=== PATIENT | male | born 1980 | race Caucasian/White ===

== ENCOUNTER 2017-03-27 15:33 | Outpatient (CLI) | payer BC ==
[2017-03-27 16:36] LABS: #Basophils 0.1 thou/uL (0.0-0.2); #Eosinphils 0.2 thou/uL (0.0-0.7); #Lymphocytes 2.5 thou/uL (1.20-3.40); #Monocytes 0.9 thou/uL (0.11-0.59); #Neutrophils 4.2 thou/uL (1.40-6.50); %Eosinophils 2.6 % (0.0-10.0); %Lymphocytes 31.6 % (21.0-51.0); %Monocytes 11.4 % (0.0-10.0); Hematocrit 44.7 % (42.0-52.0); Mean Platelet Volume 7.2 fL (7.4-10.4); Red Blood Cell (RBC) Count 4.76 mill/uL (4.70-6.10); White Blood Cell (WBC) Count 7.8 thou/uL (4.8-10.8)
[2017-03-27 16:52] LABS: ALT (SGPT) 41 U/L (8-55); AST (SGOT) 31 U/L (5-34); Alkaline Phosphatase 94 U/L (40-150); Anion Gap 11 mmol/L (10-20); BUN (Urea Nitrogen) 21 mg/dL (8.9-20.6); Bilirubin, Total 0.6 mg/dL (0.2-1.2); Calc. Creatinine Clearance 0 mL/min (70-130); Calcium 9.9 mg/dL (7.8-10.44); Carbon Dioxide 25 mmol/L (22-29); Chloride 104 mmol/L (98-107); Estimated GFR-MDRD 79; Globulin 3.1 g/dL (2.4-3.5); Protein, Total 7.5 g/dL (6.0-8.3)
== END 2017-03-27 15:34 | disposition home or self-care (01) ==
LOC: LABBT 15:33
PROVIDERS: ATTEND Surgery
DX: Z01.818 Encounter for other preprocedural examination (principal)
CPT/HCPCS: 80053; 85025

== ENCOUNTER 2017-03-29 07:56 | Day surgery (SDC) | payer BC ==
[2017-03-27 15:35] VITALS: BMI 38.7
[2017-03-29] MEDS ORDERED: Bupivacaine/Epinephrine 0.25% 30 ML VIAL ONE (09:00)
[2017-03-29] MEDS ORDERED: CEFAZOLIN/Water 2 GM/20 ML SYRINGE ONE (09:03)
[2017-03-29] MEDS ORDERED: Midazolam HCl 2 mg/2 ml Vial ONE (09:06)
[2017-03-29] MEDS ORDERED: Fentanyl 100 MCG/2 ML VIAL ONE ×2 (09:06→10:48)
--- NOTE | 2017-03-29 11:13 | OP ---
DATE OF SERVICE: 03/29/2017 PREOPERATIVE DIAGNOSIS: Epigastric hernia. SURGEON: Sp Almonte M.D. PROCEDURE: Epigastric hernia repair with mesh. INDICATIONS: A 37-year-old male who has a painful bulge just above the umbilicus. FINDINGS: A 1.2 cm defect, 6.4 cm piece of mesh used. PROCEDURE IN DETAIL: After informed consent was obtained, the patient was taken to the operating lilly m and given general mask anesthesia, placed in the supine position. The abdomen was prepped and drap ed in the usual fashion. Local anesthesia infiltrated subcutaneously and deep. An upper midline inci ben performed. The subcu divided sharply. The hernia was dissected circumferentially. The hernia sac removed. I had to open the fascia just slightly in order to reduce the hernia. Once reduced, a 6.4 cm piece of mesh was used. Proceed mesh was hydrated, inserted intra-abdominally, sutured to the abdominal wall with interrupted 0 Ethibond. Hemostasis achieved. Subcutaneous reapproximated with interrupted 3-0 Vicryl. Skin closed with a running subcuticular 4-0 Rapide. Dermabond applied. The patient tolerated the procedure well and transferred to recovery in good condition. Sponge and need le count verified correct x2.
[2017-03-29] MEDS ORDERED: Lidocaine 1% PF 5 ML VIAL ONE (16:18)
[2017-03-29] MEDS ORDERED: Propofol 200 MG/20 ML VIAL ONE (16:18)
[2017-03-29] MEDS ORDERED: Ketorolac Tromethamine 30 MG/ML VIAL ONE (16:18)
[2017-03-29] MEDS ORDERED: Glycopyrrolate 0.2 MG/ML 5 ML SYRINGE ONE (16:18)
== END 2017-03-29 12:45 | disposition home or self-care (01) ==
LOC: SDC 07:56
PROVIDERS: ATTEND Surgery
PROC: 0WUF0JZ Supplement Abdominal Wall with Synthetic Substitute, Open Approach (ICD-10-PCS; principal; 2017-03-29)
DX: K43.9 Ventral hernia without obstruction or gangrene (principal); Z90.49 Acquired absence of other specified parts of digestive tract; Z98.890 Other specified postprocedural states
CPT/HCPCS: 96374; C1781; J1885; J2001; J2250; J2704; J3010

== ENCOUNTER → 2017-04-12 | Day surgery (SDC) | payer BC ==
[~2017-04-12] MED LIST: Acetaminophen 500 MG TAB ONE; Albuterol Sulfate 1.25 MG/3 ML NEB ONE; Bupivacaine/Epinephrine 0.25% 30 ML VIAL ONE; Fentanyl 100 MCG/2 ML VIAL ONE; Fentanyl 250 MCG/5 ML VIAL ONE; HYDROcodone/Acetaminophen 7.5/325 mg Tablet ONE; HYDROmorphone 2 MG/ML VIAL SLOW IVP PRN; Ketorolac Tromethamine 30 MG/ML VIAL ONE; Meperidine HCl/PF 25 MG/ML VIAL SLOW IVP PRN; Midazolam HCl 2 mg/2 ml Vial ONE; Morphine Sulfate 2 MG/ML SYRINGE SLOW IVP PRN; Piperacillin/Tazobactam 3.375 GM in Sodium Chloride 0.9% 100 ML IVPB SCH; Promethazine HCl 25 MG/ML VIAL SLOW IVP PRN; Sodium Chloride For Inhalation 0.9% 3 ML NEB ONE; metroNIDAZOLE 500 MG in Premix Bag 1 BAG IVPB SCH
[2017-04-12 10:25] LABS: #Basophils 0.1 thou/uL (0.0-0.2); #Eosinphils 0.1 thou/uL (0.0-0.7); #Lymphocytes 1.5 thou/uL (1.20-3.40); #Monocytes 1.7 thou/uL (0.11-0.59); #Neutrophils 13.9 thou/uL (1.40-6.50); %Basophils 0.4 % (0.0-1.0); %Eosinophils 0.4 % (0.0-10.0); %Lymphocytes 8.4 % (21.0-51.0); %Monocytes 10.1 % (0.0-10.0); Hematocrit 43.6 % (42.0-52.0); Mean Platelet Volume 6.9 fL (7.4-10.4); Red Blood Cell (RBC) Count 4.67 mill/uL (4.70-6.10); White Blood Cell (WBC) Count 17.2 thou/uL (4.8-10.8)
[2017-04-12 10:43] LABS: Lactic Acid - Sepsis 1.7 mmol/L (0.5-2.2)
[2017-04-12 10:47] LABS: ALT (SGPT) 32 U/L (8-55); AST (SGOT) 22 U/L (5-34); Alkaline Phosphatase 88 U/L (40-150); Anion Gap 13 mmol/L (10-20); BUN (Urea Nitrogen) 17 mg/dL (8.9-20.6); Bilirubin, Total 1.2 mg/dL (0.2-1.2); Calc. Creatinine Clearance 0 mL/min (70-130); Calcium 10.1 mg/dL (7.8-10.44); Carbon Dioxide 23 mmol/L (22-29); Chloride 102 mmol/L (98-107); Estimated GFR-MDRD 85; Globulin 2.9 g/dL (2.4-3.5); Protein, Total 7.2 g/dL (6.0-8.3)
--- NOTE | 2017-04-12 11:24 | CT ---
CT ABDOMEN AND PELVIS WITH ORAL AND IV CONTRAST: Date: 04/12/17 HISTORY: Postop infection at umbilicus. Patient had pus and drainage from wound from periumbilical surgery 2 w eeks ago. Patient also reports fever. FINDINGS: There are mild dependent changes in the lung bases. The liver, spleen, pancreas, adrenal glands, and kidneys are normal. No calcified gallstones are seen. No free air, free fluid, or lymphadenopathy see n in the abdomen or pelvis. The small bowel loops are not abnormally dilated. There are vascular calc ifications without evidence of aneurysmal dilatation of the abdominal aorta. There are degenerative c hanges in the spine. A small hiatal hernia is present. There are inflammatory changes in the subcutaneous fat of the periumbilical region with probable asso ciated nonloculated fluid. No air bubbles are seen in the subcutaneous fat of the periumbilical regio n. IMPRESSION: Inflammatory changes in the periumbilical region without evidence of a loculated abscess. Infection, however, cannot be excluded in this region. POS: MAMI
--- NOTE | 2017-04-12 13:28 | HP ---
CHIEF COMPLAINT: Draining wound. HISTORY OF PRESENT ILLNESS: The patient is a 37-year-old male who is 8 days status post epigastric h ernia repair with mesh, who says over the last few days has noticed progressive swelling and a little bit increased pain. This morning it drained and he said it looked quite pus coming out. PAST MEDICAL HISTORY: Otherwise, obesity. PAST SURGICAL HISTORY: Appendectomy, hydrocelectomy. ALLERGIES: No known drug allergies. SOCIAL HISTORY: Smokes one half pack per day. He is . No alcohol. MEDICATIONS: Ibuprofen. FAMILY HISTORY: Noncontributory. PHYSICAL EXAMINATION: VITAL SIGNS: Temperature 99.8, pulse 103, blood pressure 141/86. GENERAL: He is an obese male in no apparent distress. HEENT: Unremarkable. LUNGS: Clear. HEART: Regular rate and rhythm. ABDOMEN: Soft. He has about a 4 cm wound that is open 1 cm draining serosanguineous fluid. There i s a mild amount of erythema, very little. He did have a CT showing some fluid in the area. LABORATORY AND X-RAY FINDINGS: His white count 17, H&H 15 and 43, platelet count 251,000. Electroly clement are fine. ASSESSMENT: Wound infection with mesh. PLAN: Return to the OR, removal of mesh, irrigation and drainage of wound with closure with Prolene sutures. Will pack open CONSENT: I have discussed the planned procedure as well as risk of bleeding, infection, recurrence. He understands and gives informed consent.
--- NOTE | 2017-04-12 16:10 | OP ---
DATE OF PROCEDURE: 04/12/2017 PREOPERATIVE DIAGNOSIS: Wound infection. SURGEON: Sp Almonte M.D. PROCEDURE: Incision and drainage and removal of mesh. INDICATIONS: This is a 37-year-old male about 8 days status post epigastric hernia repair with mesh, who over the last few days has noticed progressive swelling and today had release of purulent fluid. FINDINGS: Mucopurulent fluid sent for culture. PROCEDURE IN DETAIL: After informed consent was obtained, the patient was taken to the operating lilly m and given general endotracheal anesthesia, placed in the supine position. The abdomen was prepped and draped in the usual fashion. The wound was fully opened, releasing purulent fluid. This was sen t for culture and Gram stain and aspirated. Then, the cavity was irrigated with 1500 mL of saline wi th the pulse talk show host. Then, the mesh was removed including all the suture material and again irrig ated with 1500 mL of saline. Then, the fascia was closed with interrupted [id number] of #1 Pr olene. Hemostasis assured with electrocautery. The wound again irrigated and then a damp to dry Bet adine infused gauze was inserted within the wound to dry gauze. The patient tolerated the procedure well and transferred to recovery in good condition. Sponge and needle count verified correct x2.
== END ==
LOC: ERS 09:43 → SDC 16:17
PROVIDERS: ATTEND Surgery
PROC: 0H97XZZ Drainage of Abdomen Skin, External Approach (ICD-10-PCS; principal; 2017-04-12)
PROC: 0WPF0JZ Removal of Synthetic Substitute from Abdominal Wall, Open Approach (ICD-10-PCS; principal; 2017-04-12)
DX: T85.79XA Infection and inflammatory reaction due to other internal prosthetic devices, implants and grafts, initial encounter (principal); F17.210 Nicotine dependence, cigarettes, uncomplicated; Z90.49 Acquired absence of other specified parts of digestive tract; Z98.890 Other specified postprocedural states
CPT/HCPCS: 36415; 74177; 80053; 83605; 85025; 87040; 87070; 87077; 87186; 87205; 96361; 96365; 96367; 96374; 96375; J1885; J2250; J2543; J3010; J3370; J7050

== ENCOUNTER 2021-12-20 14:04 | Emergency (ER) | payer OTHER, SELFPAY ==
[2021-12-20 15:41] LABS: Hemoglobin 15.7 g/dL (14.0-18.0); Mean Corpuscular HGB CONC 34.9 g/dL (32.0-36.0); Mean Corpuscular Hemoglobin 33.8 pg (27.0-31.0); Mean Platelet Volume 7.4 fL (7.4-10.4); Platelet Count 213 thou/uL (130-400); RBC Distribution Width 11.9 % (11.5-14.5); Red Blood Cell (RBC) Count 4.65 mill/uL (4.70-6.10); White Blood Cell (WBC) Count 7.2 thou/uL (4.8-10.8)
[2021-12-20 15:54] LABS: Acetaminophen Less than 10.0 mcg/mL (10.0-30.0); Alcohol 248 mg/dL (Less than 10); Salicylate Less than 8.0 mg/dL (15.0-30.0)
[2021-12-20 15:55] LABS: ALT (SGPT) 124 U/L (8-55); AST (SGOT) 93 U/L (5-34); Albumin 4.6 g/dL (3.5-5.0); Alkaline Phosphatase 84 U/L (40-110); Anion Gap 18 mmol/L (10-20); BUN (Urea Nitrogen) 11 mg/dL (8.9-20.6); Bilirubin, Total 0.4 mg/dL (0.2-1.2); Calc. Creatinine Clearance 0 mL/min (70-130); Calcium 9.3 mg/dL (7.8-10.44); Carbon Dioxide 22 mmol/L (22-29); Chloride 106 mmol/L (98-107); Estimated GFR 102; Globulin 2.7 g/dL (2.4-3.5); Glucose 97 mg/dL (70-105); Potassium 3.7 mmol/L (3.5-5.1); Protein, Total 7.3 g/dL (6.0-8.3); Sodium 142 mmol/L (136-145)
[2021-12-20 16:10] LABS: Eosinophils 1 % (0-10); Lymphocytes 24 % (21-51); MDiff Complete? YES; Monocytes 13 % (0-10); Neutrophil 45 % (42-75); Platelet Morphology Comment Appears Adequate; Polychromasia SLIGHT = 2-3 cells (100X) (0-2/hpf); Reactive Lymphocytes 14 % (0-10)
[2021-12-20] MEDS ORDERED: diphenhydrAMINE 50 MG/ML VIAL ONE (19:18)
[2021-12-20] MEDS ORDERED: Haloperidol Lactate 5 MG/ML VIAL ONE (19:18)
[2021-12-20] MEDS ORDERED: Lorazepam (BATCHED) 2 MG/ML SYR ONE (19:31)
[2021-12-20 20:30] LABS: Bilirubin Negative (Negative); Blood, Urine Negative (Negative); Clarity Clear (Clear); Glucose, Urine (Dipstick) Normal (Negative); Ketone, Urine Negative (Negative); Leukocyte Negative Leu/uL (Negative); Nitrite Negative (Negative); Protein, Urine (Dipstick) 20 mg/dL (Neg-Trace); Urobilinogen Normal mg/dL (Less than 2)
[2021-12-20 20:38] LABS: Amphetamine Not Detected (NotDetected); Barbiturates Screen Not Detected (NotDetected); Benzodiazepine Screen Not Detected (NotDetected); Cocaine Metabolite Screen Not Detected (NotDetected); Methadone Not Detected (NotDetected); Methamphetamine Not Detected (NotDetected); Opiate Screen Not Detected (NotDetected); Oxycodone Screen Not Detected (NotDetected); Phencyclidine (PCP) Not Detected (NotDetected); THC/Cannabinoid Screen Detected (NotDetected); Tricyclic Screen Not Detected (NotDetected)
[2021-12-20 21:01] LABS: SARS-CoV-2 NAA Rapid Test DETECTED (NotDetected)
== END 2021-12-21 10:00 | disposition home or self-care (01) ==
LOC: ERS 14:04
DX: U07.1 COVID-19 (principal); F43.20 Adjustment disorder, unspecified; F17.210 Nicotine dependence, cigarettes, uncomplicated
CPT/HCPCS: 36415; 80053; 80306; 80307; 81003; 85025; 93005; J1200; J1630; J2060; U0002; U0003; U0005